=== PATIENT | female | born 1960 | race Caucasian/White ===

== ENCOUNTER 2018-09-26 08:32 | Emergency (ER) | payer OTHER ==
[~2018-09-26] VITALS: Ht 160 cm; Wt 90.0 kg
[2018-09-26 08:35] VITALS: Ht 160 cm; Wt 90.0 kg
--- NOTE | 2018-09-26 08:54 | ERD ---
ER Documentation Chief Complaint Chief Complaint hypertension and head "pressure" this morning HPI 58-year-old woman brought in by EMS from home for pressure-like chest discomfort, substernal, nonradiating occurring at rest this morning associated with elevated blood pressure and some anxiety as well. Patient states she had a similar episode of chest discomfort about 5 years ago but denies regular episodes of chest pain, denies heart problems, she has had no shortness of breath, no cough, no fevers or chills, no vomiting. Patient does admit to feeling anxious and has anxiety on a regular basis. ROS All systems reviewed and are negative except as per history of present illness. Medications Home Meds Reported Medications Alprazolam* (Xanax*) 0.5 Mg Tab, 0.5 MG PO BID PRN for ANXIETY, TAB 09/26/18 Sertraline Hcl* (Zoloft*) 50 Mg Tablet, 50 MG PO QAM, #30 TAB 09/26/18 Metoprolol Tartrate* (Lopressor*) 50 Mg Tab, 50 MG PO BID, #60 TAB 09/26/18 Allergies Allergies: Coded Allergies: No Known Allergy (Unverified , 09/26/18) PMhx/Soc Obesity, hypertension, anxiety FmHx Family History: No diabetes Physical Exam Vitals Vital Signs Date Temp Pulse Resp B/P (MAP) Pulse Ox O2 O2 Flow FiO2 Time Delivery Rate 09/26/18 97.8 68 18 132/75 95 08:35 (94) Physical Exam GENERAL: Well-developed, well-nourished, well-hydrated, anxious, looks nontoxic in appearance, afebrile HEENT: Moist mucous membranes, pink conjunctiva, no cervical spine tenderness or step-off deformities, no goiter, no jaundice or icterus, extraocular movements intact without pain. No submandibular induration, and no pharyngeal erythema NEURO: Alert and oriented 3, cranial nerves II through XII intact bilaterally, pupils equal round reactive to light, no focal deficits or facial asymmetry, sensation intact distally Strength 5/5 in upper and lower extremities bilaterally CARDIAC: Regular rate and rhythm, no murmurs rubs or gallops LUNGS: Clear bilaterally no wheezing crackles or stridor ABDOMEN: Soft nontender, no guarding, no rigidity, no rebound, no psoas sign no obturator sign. SKIN: Warm and dry to touch, no abrasions, contusions, or hematomas, no lacerations, no ecchymosis, no target lesions, and without ulcers EXTREMITIES: No clubbing cyanosis or edema, calves are bilaterally symmetrical, no Homans sign, no popliteal cord sign. Distal pulses equal and bilateral PSYCH: Anxious and tearful Result Diagram: 09/26/18 0721 09/26/18 0721 Results 24 hrs Laboratory Tests Test 09/26/18 07:21 09/26/18 10:22 White Blood Count 7.8 10^3/ul Red Blood Count 4.87 10^6/ul Hemoglobin 14.3 g/dl Hematocrit 44.5 % Mean Corpuscular Volume 91.4 fl Mean Corpuscular Hemoglobin 29.4 pg Mean Corpuscular Hemoglobin Concent 32.1 g/dl Red Cell Distribution Width 13.2 % Platelet Count 218 10^3/UL Mean Platelet Volume 10.5 fl Immature Granulocytes % 0.100 % Neutrophils % 33.1 % Lymphocytes % 53.7 % Monocytes % 8.0 % Eosinophils % 4.6 % Basophils % 0.5 % Nucleated Red Blood Cells % 0.0 /100WBC Immature Granulocytes # 0.010 10^3/ul Neutrophils # 2.6 10^3/ul Lymphocytes # 4.2 10^3/ul Monocytes # 0.6 10^3/ul Eosinophils # 0.4 10^3/ul Basophils # 0.0 10^3/ul Nucleated Red Blood Cells # 0.0 10^3/ul Sodium Level 143 mmol/L Potassium Level 3.7 mmol/L Chloride Level 101 mmol/L Carbon Dioxide Level 28 mmol/L Anion Gap 14 Blood Urea Nitrogen 11 mg/dl Creatinine 0.52 mg/dl Est Glomerular Filtrat Rate mL/min > 60 mL/min Glucose Level 145 mg/dl Calcium Level 9.6 mg/dl Total Bilirubin 0.4 mg/dl Direct Bilirubin 0.00 mg/dl Indirect Bilirubin 0.4 mg/dl Aspartate Amino Transf (AST/SGOT) 55 IU/L Alanine Aminotransferase (ALT/SGPT) 51 IU/L Alkaline Phosphatase 111 IU/L Troponin I < 0.012 ng/ml Total Protein 8.0 g/dl Albumin 4.3 g/dl Globulin 3.70 g/dl Albumin/Globulin Ratio 1.16 Lipase 50 U/L Urine Color YELLOW Urine Clarity SLIGHTLY CLOUDY Urine pH 6.0 Urine Specific Calder 1.003 Urine Ketones NEGATIVE mg/dL Urine Nitrite NEGATIVE mg/dL Urine Bilirubin NEGATIVE mg/dL Urine Urobilinogen NEGATIVE mg/dL Urine Leukocyte Esterase TRACE Joyce/ul Urine Microscopic RBC 2 /HPF Urine Microscopic WBC 9 /HPF Urine Squamous Epithelial Cells MODERATE /HPF Urine Bacteria FEW /HPF Urine Hemoglobin NEGATIVE mg/dL Urine Glucose NEGATIVE mg/dL Urine Total Protein NEGATIVE mg/dl Current Medications Medications Dose Sig/Sully Start Time Status Last (Trade) Ordered Route PRN Stop Time Admin Dose Reason Admin Sodium 500 ml @ Q1H STAT 09/26/18 DC 09/26/18 Chloride 500 mls/hr IV 09:03 09:33 09/26/18 10:02 Aspirin 324 mg ONCE ONCE 09/26/18 DC 09/26/18 (Aspirin) PO 09:30 09:34 09/26/18 09:31 Lorazepam 0.5 mg ONCE ONCE 09/26/18 DC (Ativan) PO 10:00 09/26/18 10:01 Procedures/MDM IV line was established patient was placed on desk monitor rhythm strip revealed a sinus rhythm at about 70 bpm with upright P and T waves. Patient was afebrile EKG performed, read by me revealed a normal sinus rhythm at 67 bpm, normal axis, narrow QRS complex, no concerning ST elevations or depressions noted I administered 500 cc normal saline IV and aspirin 324 mg p.o. for cardio protective measures. Chest X-ray 1V Interpreted by me: Soft Tissue: No acute abnormalities Bones: No acute abnormalities Mediastinum/Cardiac Silhouette/Lungs: No acute abnormalities Patient's hypertension improved en route CBC and electrolytes are normal, liver function tests were normal, troponin was negative, UA was equivocal although given her recent symptoms I did treat her with ceftriaxone 1 g IV here in the ED. Further antibiotic treatment if indicated deferred to admitting team. Given the patient's past medical history and risk factors she will be admitted to telemetry for chest pain management and possible cardiology consultation. Departure Diagnosis: Primary Impression: Hypertension Hypertension type: essential hypertension Qualified Codes: I10 - Essential (primary) hypertension Additional Impression: Chest pain Chest pain type: unspecified Qualified Codes: R07.9 - Chest pain, unspecified Condition: TARAN Iglesias MD Sep 26, 2018 08:54
[2018-09-26] MEDS ORDERED: METO-429 PO (09:02)
[2018-09-26] MEDS ORDERED: SOD CHLORIDE 0.9% 500 ML IV STA (09:03)
[2018-09-26] MEDS ORDERED: SERT50TA PO (09:04)
[2018-09-26] MEDS ORDERED: ALPR0.5T PO (09:04)
[2018-09-26] MEDS: ASPIRIN 81 MG TAB PO ONE ×2 (09:21→09:34)
[2018-09-26] MEDS ORDERED: LORAZEPAM 0.5 MG TAB PO ONE (10:00)
[2018-09-26] MEDS ORDERED: CEFTRIAXONE 1 GM/50 ML (PMX) 50 ML IVPB ONE (11:30)
[2018-09-26 12:00] VITALS: BP 119/64; PULSE 73; RESP 18
[2018-09-26] MEDS ORDERED: NICOTINE (21 MG/24 HR) PATCH TRANSDERM ONE (14:30)
--- NOTE | 2018-09-26 15:30 | DS ---
Date/Time of Note Date/Time of Note DATE: 09/26/18 TIME: 15:25 Discharge Summary Admission/Discharge Info Admit Date/Time 26 September 2018 Discharge Date/Time 26 September 2018 Discharge Diagnosis Noncardiac chest pain Patient Condition: Good Consults None Procedures None Hx of Present Illness Ms. Blood is an obese 58 yo woman with anxiety who presented to the ED with chest pain. Patient woke up this morning with "head pressure", followed soon by severe mid substernal chest pressure. She had her check her blood pressure using home cuff; wa 170/90s then 200s/100s. She took her morning metoprolol and Xanax. Called paramedics. On arrival, they measured a systolic blood pressure of 155. She was given aspirin 325 and sublingual nitro. The headache and chest pain resolved. She was brought to the [facility] ED. Of note, the patient had similar chest pain 5 years ago. She had a negative treadmill stress test by Dr. West. She last saw him about 3 years ago. In the meantime she reports adequate exercise tolerance, can walk up a flight of stairs without chest pain. In the ED vitals were unremarkable. BP 132/75, P 68, afebrile. EKG reviewed, nonischemic. Troponin negative. Labs unremarkable. CXR showed mild cardiomegaly. Of note, patient does smoke 1 ppd. I discussed risk factors for ACS for this patient and recommended it was very unlikely in her case; but she should at least remain for the second troponin. I also recommended she make an appointment with Dr. West. The patient initially was agreeable but later left the ED AMA. Hospital Course None Home Meds Reported Medications Alprazolam* (Xanax*) 0.5 Mg Tab, 0.5 MG PO BID PRN for ANXIETY, TAB 09/26/18 Sertraline Hcl* (Zoloft*) 50 Mg Tablet, 50 MG PO QAM, #30 TAB 09/26/18 Metoprolol Tartrate* (Lopressor*) 50 Mg Tab, 50 MG PO BID, #60 TAB 09/26/18 Primary Care Provider Care Physician No Primary Time spent on discharge: > 30 minutes Pending Labs Laboratory Tests Test 09/26/18 07:21 09/26/18 10:22 White Blood Count 7.8 10^3/ul (4.8-10.8) Red Blood Count 4.87 10^6/ul (4.20-5.40) Hemoglobin 14.3 g/dl (12.0-16.0) Hematocrit 44.5 % (37.0-47.0) Mean Corpuscular Volume 91.4 fl (82.0-101.0) Mean Corpuscular 29.4 pg (29.0-33.0) Hemoglobin Mean Corpuscular 32.1 g/dl (32.0-37.0) Hemoglobin Concent Red Cell Distribution 13.2 % (11.5-14.5) Width Platelet Count 218 10^3/UL (140-415) Mean Platelet Volume 10.5 fl (7.4-10.4) Immature Granulocytes % 0.100 % (0.001-0.429) Neutrophils % 33.1 % (39.0-77.0) Lymphocytes % 53.7 % (15.0-51.0) Monocytes % 8.0 % (0.0-11.0) Eosinophils % 4.6 % (0.0-7.0) Basophils % 0.5 % (0.0-2.0) Nucleated Red Blood Cells 0.0 /100WBC (0.0-0.0) % Immature Granulocytes # 0.010 10^3/ul (0.0-0.031) Neutrophils # 2.6 10^3/ul (1.6-7.5) Lymphocytes # 4.2 10^3/ul (0.8-2.9) Monocytes # 0.6 10^3/ul (0.3-0.9) Eosinophils # 0.4 10^3/ul (0.0-0.5) Basophils # 0.0 10^3/ul (0.0-0.1) Nucleated Red Blood Cells 0.0 10^3/ul (0.0-0.0) # Sodium Level 143 mmol/L (135-144) Potassium Level 3.7 mmol/L (3.5-5.1) Chloride Level 101 mmol/L (97-110) Carbon Dioxide Level 28 mmol/L (21-31) Anion Gap 14 (5-13) Blood Urea Nitrogen 11 mg/dl (7-20) Creatinine 0.52 mg/dl (0.44-1.00) Est Glomerular Filtrat > 60 mL/min (>60) Rate mL/min Glucose Level 145 mg/dl (70-220) Calcium Level 9.6 mg/dl (8.4-10.2) Total Bilirubin 0.4 mg/dl (0.2-1.3) Direct Bilirubin 0.00 mg/dl (0.00-0.20) Indirect Bilirubin 0.4 mg/dl (0-1.1) Aspartate Amino 55 IU/L (15-46) Transf (AST/SGOT) Alanine 51 IU/L (13-69) Aminotransferase (ALT/SGPT ) Alkaline Phosphatase 111 IU/L (42-121) Troponin I < 0.012 ng/ml (0.000-0.120) Total Protein 8.0 g/dl (6.1-8.1) Albumin 4.3 g/dl (3.3-4.9) Globulin 3.70 g/dl (1.3-3.2) Albumin/Globulin Ratio 1.16 Lipase 50 U/L (23-300) Urine Color YELLOW (YELLOW) Urine Clarity SLIGHTLY CLOUDY (CLEAR) Urine pH 6.0 (5.0-9.0) Urine Specific Waldron 1.003 (1.003-1.030) Urine Ketones NEGATIVE mg/dL (NEGATIVE) Urine Nitrite NEGATIVE mg/dL (NEGATIVE) Urine Bilirubin NEGATIVE mg/dL (NEGATIVE) Urine Urobilinogen NEGATIVE mg/dL (NEGATIVE) Urine Leukocyte Esterase TRACE Joyce/ul (NEGATIVE) Urine Microscopic RBC 2 /HPF (0-5) Urine Microscopic WBC 9 /HPF (0-5) Urine Squamous MODERATE /HPF (FEW) Epithelial Cells Urine Bacteria FEW /HPF (NONE SEEN) Urine Hemoglobin NEGATIVE mg/dL (NEGATIVE) Urine Glucose NEGATIVE mg/dL (NEGATIVE) Urine Total Protein NEGATIVE mg/dl (NEGATIVE) KRISTY LAWRENCE MD Sep 26, 2018 15:30
== END 2018-09-26 14:10 | disposition left against medical advice (07) ==
LOC: E/R 08:32 → CANBEDREQ 09-27 19:33
DX: I10 Essential (primary) hypertension (principal); R07.9 Chest pain, unspecified
CPT/HCPCS: 36415; 71045; 80053; 81001; 83690; 84484; 85025; 96374; J0696; J7040; Z7502; Z7610

== ENCOUNTER 2018-11-08 04:05 | Observation (INO) | payer OTHER ==
[~2018-11-08] VITALS: Ht 170.2 cm; Wt 120.7 kg
[~2018-11-08 04:05] MED LIST: ALPR0.5T PO; METO-429 PO; SERT50TA PO
[2018-11-08] MEDS ORDERED: NITROGLYCERIN 2% 1 GM OINT PKT TD STA (04:36)
[2018-11-08] MEDS ORDERED: ASPIRIN 325 MG TAB PO STA (04:36)
--- NOTE | 2018-11-08 05:05 | ERD ---
ER Documentation Chief Complaint Chief Complaint CP; HTN HPI 58-year-old female history of obesity, hypertension, smoking who presents the emergency room with chest pain. The patient has had several weeks of chest pain usually in the early hours of the morning. She was seen at [facility] several days ago and told to be admitted at [facility] but she left AGAINST MEDICAL ADVICE. The patient describes persistent chest pain and pressure that is substernal, nonradiating, nonpleuritic. Blood pressure has been elevated at home in the 190 range. No mid back pain numbness or tingling. Pain is approximately 3-10 currently. ROS All systems reviewed and are negative except as per history of present illness. Medications Home Meds Reported Medications Alprazolam* (Xanax*) 0.5 Mg Tab, 0.5 MG PO BID PRN for ANXIETY, TAB 09/26/18 Sertraline Hcl* (Zoloft*) 50 Mg Tablet, 50 MG PO QAM, #30 TAB 09/26/18 Metoprolol Tartrate* (Lopressor*) 50 Mg Tab, 50 MG PO BID, #60 TAB 09/26/18 Allergies Allergies: Coded Allergies: No Known Allergy (Unverified , 09/26/18) PMhx/Soc History of Surgery: No Anesthesia Reaction: No Hx Neurological Disorder: No Hx Respiratory Disorders: No Hx Cardiac Disorders: Yes (htn) Hx Psychiatric Problems: No Hx Miscellaneous Medical Probl: Yes (anxiety) Hx Alcohol Use: No Hx Substance Use: No Hx Tobacco Use: Yes Smoking Status: Current every day smoker FmHx Family History: No diabetes Physical Exam Vitals Vital Signs Date Temp Pulse Resp B/P (MAP) Pulse Ox O2 O2 Flow FiO2 Time Delivery Rate 11/08/18 77 14 150/92 96 Room Air 05:58 (111) 11/08/18 98.6 70 18 172/80 97 04:14 (110) Physical Exam General: Well developed, well nourished, no acute distress Head: Normocephalic, atraumatic. Eyes: Pupils equally reactive, EOM intact ENT: Moist mucous membranes Neck: Supple, no lymphadenopathy Respiratory: Lungs clear bilaterally, no distress Cardiovascular: RRR, no murmurs, rubs, or gallops Abdominal: Soft, non-tender, non-distended, no peritoneal signs : Deferred MSK: No edema, no unilateral swelling, 5/5 strength Neurologic: Alert and oriented, moving all extremities, normal speech, no focal weakness, no cerebellar signs Skin: No rash Psych: Normal mood Result Diagram: 11/08/1844611/08/18446 Results 24 hrs Laboratory Tests Test 11/08/18 04:47 White Blood Count 8.6 10^3/ul Red Blood Count 4.97 10^6/ul Hemoglobin 14.7 g/dl Hematocrit 44.7 % Mean Corpuscular Volume 89.9 fl Mean Corpuscular Hemoglobin 29.6 pg Mean Corpuscular Hemoglobin Concent 32.9 g/dl Red Cell Distribution Width 13.3 % Platelet Count 220 10^3/UL Mean Platelet Volume 10.4 fl Immature Granulocytes % 0.200 % Neutrophils % 40.1 % Lymphocytes % 48.0 % Monocytes % 7.5 % Eosinophils % 3.3 % Basophils % 0.9 % Nucleated Red Blood Cells % 0.0 /100WBC Immature Granulocytes # 0.020 10^3/ul Neutrophils # 3.4 10^3/ul Lymphocytes # 4.1 10^3/ul Monocytes # 0.6 10^3/ul Eosinophils # 0.3 10^3/ul Basophils # 0.1 10^3/ul Nucleated Red Blood Cells # 0.0 10^3/ul Sodium Level 141 mmol/L Potassium Level 3.7 mmol/L Chloride Level 105 mmol/L Carbon Dioxide Level 27 mmol/L Anion Gap 9 Blood Urea Nitrogen 12 mg/dl Creatinine 0.57 mg/dl Est Glomerular Filtrat Rate mL/min > 60 mL/min Glucose Level 108 mg/dl Calcium Level 9.9 mg/dl Troponin I < 0.012 ng/ml Current Medications Medications Dose Sig/Sully Start Time Status Last (Trade) Ordered Route PRN Stop Time Admin Dose Reason Admin Aspirin 325 mg ONCE STAT 11/08/18 DC 11/08/18 (Aspirin) PO 04:36 11/08/18 04:51 04:38 1 inch ONCE STAT 11/08/18 DC 11/08/18 Nitroglycerin TD 04:36 11/08/18 04:51 04:38 (Nitroglyceri n 2% Oint) Procedures/MDM EKG, MONITORS, & DIAGNOSTIC IMAGING: EKG: I reviewed and interpreted a 12-lead EKG. Rhythm: Normal sinus rhythm ST Changes: No contiguous ST segment elevations T waves: No contiguous T wave inversions Impression: No evidence of acute cardiac ischemia Repeat EKG: EKG: I reviewed and interpreted a 12-lead EKG. Rhythm: Normal sinus rhythm ST Changes: No contiguous ST segment elevations T waves: No contiguous T wave inversions Impression: No evidence of acute cardiac ischemia Chest x-ray: I reviewed and interpreted a 1 view of the chest Mediastinum: No enlargement Cardiac silhouette: No cardiomegaly Airspace: Clear lung barrett bilaterally without evidence of pneumothorax Bones: No evidence of fracture PROCEDURES: None LAB INTERPRETATION: * neg trop MEDICAL DECISION MAKING: The patient's history, physical exam and clinical presentation is concerning for possible cardiogenic etiology and acute coronary syndrome. Based on the patient's clinical exam and history and risk factors, I have a much lower clinical concern for pulmonary embolism, acute aortic dissection, pneumothorax, pneumonia, cardiac tamponade HEART Score: 4 MACE Rate: 16.6% Shared Decision Making: We had a conversation regarding risk stratification, MACE rate, and the risks, benefits, alternatives of disposition planning options. Disposition planning: Telemetry admission ER COURSE: * Blood pressure improved without significant intervention. Aspirin nitroglycerin provided. Chest pain improving. CONSULTATION: None DISPOSITION PLAN: Telemetry admission for management of chest pain to rule out acute coronary syndrome, serial enzymes, risk stratification and consideration of provocative testing CONSULTATION: Accepting care team and consultations: I discussed the current laboratory data, diagnostic imaging and emergency care provided. Admitting team: Dr. Garcia Admitting team indication: Insurance directed Departure Diagnosis: Primary Impression: Chest pain Chest pain type: unspecified Qualified Codes: R07.9 - Chest pain, unspecified Additional Impression: Hypertensive urgency Condition: Stable SU GARCÍA MD November 08, 2018 05:05
[2018-11-08] MEDS ORDERED: ACETAMINOPHEN 325 MG TAB PO PRN ×2 (06:00→06:30)
[2018-11-08] MEDS ORDERED: ONDANSETRON 4 MG INJ IV PRN ×2 (06:00→06:30)
[2018-11-08] MEDS ORDERED: NACL 0.9% 3 ML SYG IV SCH (06:30)
[2018-11-08] MEDS ORDERED: DOCUSATE SODIUM 100 MG CAP PO PRN (06:30)
[2018-11-08] MEDS ORDERED: NITROGLYCERIN (SL) 0.4 MG TAB SL PRN (06:30)
[2018-11-08] MEDS ORDERED: BISACODYL (EC) 5 MG TAB PO PRN (06:30)
[2018-11-08] MEDS ORDERED: morphine 2 MG INJ IV PRN (06:30)
--- NOTE | 2018-11-08 08:00 | HP ---
Date/Time of Note Date/Time of Note DATE: 11/08/18 TIME: 07:58 Assessment/Plan VTE Prophylaxis SCD applied (from Nsg): Yes Pharmacological prophylaxis: NA/contraindicated Pharm contraindication: low risk/ambulating Lines/Catheters IV Catheter Type (from Nrsg): Saline Lock Assessment/Plan Hospital Course This is a 58-year-old female being admitted to the telemetry floor for observation for: #1 chest pain: Rule out ACS versus musculoskeletal/anxiety. patient does apparently have uncontrolled blood pressures however unsure whether this is due to underlying anxiety. palpable tenderness to palpation across her chest wall. She does report systolic blood pressures in the 190s at home. She is currently only on metoprolol. I will start patient on Norvasc 2.5 mg p.o. daily at the current time. She does have a nitro patch on as well which I will discontinue to but her get an ideal patient's blood pressures. And put PRN nitroglycerin sublingual. Will trend cardiac enzymes x3, the first that was negative. We will check an echocardiogram. #2 uncontrolled hypertension: Anxiety may also be contributing to this as well. Nonetheless given the high blood pressures will continue patient's beta-kwesi, will initiate Norvasc. Will DC the nitro patch at the current time. PRN nitro sublingual as needed. Monitor blood pressures #3 anxiety: Continue sertraline, will consult psych for further guidance #4 insomnia: Possibly secondary to underlying anxiety/stress. And then will con sult psych. #5 obesity: We will check hemoglobin A1c, lipid panel, TSH #6 DVT and GI prophylaxis: SCDs, no GI prophylaxis indicated Further treatment strategy will be implemented as per the clinical course. Result Diagram: 11/08/18 0447 11/08/18 0447 Results 24hrs Laboratory Tests Test 11/08/18 04:47 White Blood Count 8.6 Red Blood Count 4.97 Hemoglobin 14.7 Hematocrit 44.7 Mean Corpuscular Volume 89.9 Mean Corpuscular Hemoglobin 29.6 Mean Corpuscular Hemoglobin Concent 32.9 Red Cell Distribution Width 13.3 Platelet Count 220 Mean Platelet Volume 10.4 Immature Granulocytes % 0.200 Neutrophils % 40.1 Lymphocytes % 48.0 Monocytes % 7.5 Eosinophils % 3.3 Basophils % 0.9 Nucleated Red Blood Cells % 0.0 Immature Granulocytes # 0.020 Neutrophils # 3.4 Lymphocytes # 4.1 H Monocytes # 0.6 Eosinophils # 0.3 Basophils # 0.1 Nucleated Red Blood Cells # 0.0 Sodium Level 141 Potassium Level 3.7 Chloride Level 105 Carbon Dioxide Level 27 Anion Gap 9 Blood Urea Nitrogen 12 Creatinine 0.57 Est Glomerular Filtrat Rate mL/min > 60 Glucose Level 108 Hemoglobin A1c 5.9 Calcium Level 9.9 Magnesium Level 1.9 Troponin I < 0.012 Triglycerides Level 181 H Cholesterol Level 248 H LDL Cholesterol, Calculated 176 HDL Cholesterol 36 L Cholesterol/HDL Ratio 6.8 Thyroid Stimulating Hormone (TSH) Pending HPI/ROS Admit Date/Time Admit Date/Time Hx of Present Illness cc: Chest pain: 58-year-old female history of obesity, hypertension, smoking who presents the emergency room with chest pain. The patient has had several weeks of chest pain usually in the early hours of the morning. She was seen at [facility] several days ago and told to be admitted at [facility] but she left AGAINST MEDICAL ADVICE. The patient describes persistent chest pain and pressure that is substernal, nonradiating, nonpleuritic. Blood pressure has been elevated at home in the 190 range. No mid back pain numbness or tingling. Pain is approximately 3-10 currently. Patient also reports that she has been dealing with a lot of stress lately secondary to finances. She has also not been sleeping properly. She reports that her blood pressures go into the low 190s mainly at night when she is using her iPad. Allergies: NKDA Medications: See IVON DENT Const: As per HPI Eyes : No pain discharge or redness or change in visual acuity ENT: No pain, sore throat, congestion, congestion, dysphagia or discharge Respiratory: No shortness of breath, cough, sputum, wheezing, or pleuritic pain Cardiovascular: As per HPI GI : no change in appetite, abdominal pain, nausea, vomiting, diarrhea, constipation, or change in the color his stool Genitourinary: No dysuria, hematuria, flank pain , discharge or CVA tenderness Musculoskeletal: No joint pain, back pain, neck pain, restricted range of motion in neck or joints Skin: No rash, bruising or hives Neuro: No headache, dizziness, syncope, seizure, focal weakness Endocrine: No polyuria, polydipsia, temperature intolerance Psych: No hallucination, depression, anxiety or suicidal ideation PMH/Family/Social Past Medical History Hypertension, anxiety Medications Current Medications Ondansetron HCl (Zofran Inj) 4 mg ER BRIDGE PRN IV NAUSEA/VOMITING; Start 11/08/18 at 06:00; Stop 11/09/18 at 05:59 Acetaminophen (Tylenol Tab) 650 mg ER BRIDGE PRN PO .MILD PAIN 1-3 OR TEMP; Start 11/08/18 at 06:00; Stop 11/09/18 at 05:59 Alprazolam (Xanax) 0.5 mg BID PRN PO ANXIETY; Start 11/08/18 at 06:30 Metoprolol Tartrate (Lopressor) 50 mg BID PO ; Start 11/08/18 at 09:00 Sertraline HCl (Zoloft) 50 mg QAM PO ; Start 11/08/18 at 09:00 IV Flush (NS 3 ml) 3 ml PER PROTOCOL IV ; Start 11/08/18 at 06:30 Ondansetron HCl (Zofran Inj) 4 mg Q6H PRN IV NAUSEA/VOMITING; Start 11/08/18 at 06:30 Nitroglycerin (Nitroglycerin (Sl Tab) 0.4 Mg) 1 tab Q5M PRN SL .CHEST PAIN; Start 11/08/18 at 06:30 Acetaminophen (Tylenol Tab) 650 mg Q6H PRN PO .PAIN 1-3 OR TEMP; Start 11/08/18 at 06:30 Morphine Sulfate (morphine) 2 mg Q4H PRN IV .PAIN 7-10; Start 11/08/18 at 06:30 Docusate Sodium (Colace) 100 mg Q12H PRN PO .CONSTIPATION; Start 11/08/18 at 06:30 Bisacodyl (Dulcolax) 5 mg DAILY PRN PO .CONSTIPATION; Start 11/08/18 at 06:30 Coded Allergies: No Known Allergy (Unverified , 11/08/18) Past Surgical History x2 Social History Alcohol Use: none Smoking Status: Current every day smoker Drug Use: none Exam/Review of Systems Vital Signs Vitals Vital Signs Date Temp Pulse Resp B/P (MAP) Pulse Ox O2 O2 Flow FiO2 Time Delivery Rate 11/08/18 62 16 129/68 96 Room Air 06:27 (88) 11/08/18 98.6 04:14 Exam Exam General: Currently lying in bed, patient does appear tired, exhausted HEENT: Atraumatic, normocephalic. The pupils are equal, round and reactive. Extraocular motor are intact Neck: Supple with full range of motion. No rigidity or meningismus Chest: Tenderness to palpation across anterior chest wall and the sternal wall Lungs: Clear to auscultation bilaterally no crackles rales or wheezing Heart: Normal S1-S2, Regular rhythm and rate. No murmur, S3, or S4 Abdomen: Obese, soft , nontender, nondistended , bowel sounds are present. No guarding no rebound tenderness , No masses or organomegaly. No costovertebral temporal angle mass Extremities: Normal to inspection, no edema no cyanosis Neurologic: Normal mental status, speech normal, cranial nerves II through XII a re intact, motor and sensory are intact, Additional Comments PROCEDURE: XR Chest. CLINICAL INDICATION: Chest pain TECHNIQUE: AP chest was obtained. COMPARISON: None. FINDINGS: Heart normal limits in size. No evidence of pulmonary vascular congestion acute lung consolidation pleural effusions and pneumothorax. IMPRESSION: No evidence of acute cardiopulmonary disease. RPTAT:AAJJ Physician Mony Date Time Electronically viewed and signed by Physician Mony on 11/08/2018 05:05 BM/ CC: SU GARCÍA MD [id number] EKG: Rhythm: Normal sinus rhythm ST Changes: No contiguous ST segment elevations T waves: No contiguous T wave inversions Impression: No evidence of acute cardiac ischemia ANEL SIERRA November 08, 2018 08:00
[2018-11-08] MEDS: METOPROLOL 50 MG TAB PO SCH ×2 (08:18→20:12)
[2018-11-08] MEDS: SERTRALINE 50 MG TAB PO SCH (08:18)
[2018-11-08] MEDS: AMLODIPINE 2.5 MG TAB PO SCH (08:24)
[2018-11-08] MEDS: ALPRAZOLAM 0.5 MG TAB PO PRN ×2 (12:03→21:20)
--- NOTE | 2018-11-08 13:59 | QN ---
Documentation Comment 58-year-old obese female with a history of hypertension, anxiety disorders, tobacco abuse, admitted with substernal chest pain... Found to have poorly controlled blood pressure. Serial cardiac biomarkers have been negative. Pending echocardiogram. Patient continued to report chest pain, unrelated to activity, rest. Aspirin or nitro does not help with pain either. She endorsed to a negative stress test 1-1/2 years ago. Blood pressure has been stabilized with addition of antihypertensives. At this time, as patient with multiple ER visits for chest pain, I will request cardiology consultation. Continue home medications. Counseled on smoking cessation. Patient refused nicotine patch. Case discussed with Dr. Salinas. SHAGGY CARVER NP November 08, 2018 13:59
--- NOTE | 2018-11-08 17:36 | PSY ---
Date/Time of Note Date/Time of Note DATE: 11/08/18 TIME: 16:50 Psychiatric Subjective Eval Consent Pt consented to telemedicine: No Subjective Evaluation Patient location: inpatient Chief Complaint: CP; HTN History of present illness Patient is a 58-year-old female with underlying medical history of obesity, hypertension, smoking who presents the emergency room with chest pain. [id number] evaluation, patient states she has chronic anxiety, and she has been on Zoloft and alprazolam for 16 years. Patient states she is worried about her increased blood pressure because nothing seems to be bordering her, that may have contributed to the high blood pressure. She states she has chronic anxiety, which has been controlled with the Zoloft and alprazolam. She denies feeling of hopelessness denies suicidal ideation denies irritability contracted for safety. Patient expressed that she has not been able to get a psychiatrist on an outpatient basis, and requested for referral. Will enter an order for social media senior associate to assist patient with outpatient psychiatric appointment with [facility] Hospitalization: other Medical history Problems Medical Problems: (1) Chest pain Status: Acute (2) Chest pain Status: Acute (3) Hypertension Status: Acute (4) Hypertensive urgency Status: Acute Allergies: Coded Allergies: No Known Allergy (Unverified , 11/08/18) Substance Abuse Substance abuse history: No Prior substance abuse treatmen: No Social History Marital status: other DPA/Conservatorship: No Psychiatric Objective Eval Review of Systems: Review of Systems: Not Applicable Physical Examination: Sleep: Adequate Appetite: Adequate Energy: Adequate Interest: Adequate Mental Status Examination: Appearance: Groomed Eye Contact: Good Psychomotor Activity: Normal Behavior: Cooperative Speech: Clear AFFECT: Appropriate Mood: Anxious Though Process: Linear Thought Content: Normal Orientation: x4 Cognition: Alert Insight: Intact Judgement: Intact Attention Span: Intact Laboratory Results Laboratory Tests Test 11/08/18 04:47 11/08/18 10:46 White Blood Count 8.6 10^3/ul Red Blood Count 4.97 10^6/ul Hemoglobin 14.7 g/dl Hematocrit 44.7 % Mean Corpuscular Volume 89.9 fl Mean Corpuscular Hemoglobin 29.6 pg Mean Corpuscular Hemoglobin Concent 32.9 g/dl Red Cell Distribution Width 13.3 % Platelet Count 220 10^3/UL Mean Platelet Volume 10.4 fl Immature Granulocytes % 0.200 % Neutrophils % 40.1 % Lymphocytes % 48.0 % Monocytes % 7.5 % Eosinophils % 3.3 % Basophils % 0.9 % Nucleated Red Blood Cells % 0.0 /100WBC Immature Granulocytes # 0.020 10^3/ul Neutrophils # 3.4 10^3/ul Lymphocytes # 4.1 10^3/ul Monocytes # 0.6 10^3/ul Eosinophils # 0.3 10^3/ul Basophils # 0.1 10^3/ul Nucleated Red Blood Cells # 0.0 10^3/ul Sodium Level 141 mmol/L Potassium Level 3.7 mmol/L Chloride Level 105 mmol/L Carbon Dioxide Level 27 mmol/L Anion Gap 9 Blood Urea Nitrogen 12 mg/dl Creatinine 0.57 mg/dl Est Glomerular Filtrat Rate mL/min > 60 mL/min Glucose Level 108 mg/dl Hemoglobin A1c 5.9 % Calcium Level 9.9 mg/dl Magnesium Level 1.9 mg/dl Troponin I < 0.012 ng/ml < 0.012 ng/ml Triglycerides Level 181 mg/dl Cholesterol Level 248 mg/dl LDL Cholesterol, Calculated 176 mg/dl HDL Cholesterol 36 mg/dl Cholesterol/HDL Ratio 6.8 RATIO Thyroid Stimulating Hormone (TSH) 4.620 MIU/L Creatine Kinase 42 IU/L Creatine Kinase Index 0.6 Creatinine Kinase MB (Mass) 0.24 ng/ml Assessment and Plan Assessment/Diagnosis Diagnosis Anxiety disorder Recommendation/Plan Medication Management Continue current medication Zoloft and Xanax. clerical and administrative workers to make an appointment for patient to see an outpatient psychiatrist with [facility] Multiple antipsychotics: No Psychotherapy By supportive therapy Discharge Disposition: Other Legal Status: Voluntary (Patient does not meet criteria for 5150 hold) JENELLE VILLATORO NP November 08, 2018 17:00
[2018-11-08 17:53] VITALS: Ht 170.2 cm; Wt 120.7 kg
[2018-11-08 17:58] VITALS: PULSE 65
[2018-11-08 18:22] VITALS: BP 146/68; PULSE 62; RESP 18
[2018-11-08 20:00] VITALS: PULSE 63
[2018-11-08 20:04] VITALS: BP 130/66; PULSE 62; RESP 20
[2018-11-08 20:11] VITALS: BP 145/68; PULSE 64
--- NOTE | 2018-11-08 22:42 | RADRPT ---
Echocardiogram Report Patient Name: PEPE DUNHAMPatient ID: [id number] : 1960 (58y 5m)Study Date: 11/08/2018 9:05:51 AM Gender: FAccession #: [id number] Tech: Maria T Destini Callahan [facility] Location: 51 Ref.Physician: ANEL SIERRA Height(Cm): BSA: Weight(Kg): Quality: AdequateAccount #: Procedures: Echocardiographic Report: Transthoracic echocardiogram with complete 2D, M-Mode, and doppler examination. Indications: Chest Pain. Measurements: 2D/M Mode Doppler Measurement Value Normal Range Measurement Value Normal Range LVIDd 2D 3.9 [ 3.8 - 5.2 ] cm AV Peak Guille 1.6 [ 100.0 - 170.0 ] cm/sec LVIDs 2D 2.0 [ 2.2 - 3.5 ] cm AV Peak PG 10.0 [ 2.0 - 9.0 ] mmHg LVPWd 2D 1.1 [ 0.6 - 0.9 ] cm LVOT Peak Guille 1.1 [ 70.0 - 110.0 ] cm/sec IVSd 2D 1.3 [ 0.6 - 0.9 ] cm LVOT Peak PG 5.0 [ 2.0 - 6.0 ] mmHg AoR Diam 2D 2.2 [ 2.3 - 3.1 ] cm MV E Peak Guille 0.7 [ 60.0 - 130.0 ] cm/sec EDV 2D 67.1 [ 46.0 - 106.0 ] ml MV A Peak Guille 1.0 [ 100.0 - 120.0 ] cm/sec ESV 2D 13.6 [ 14.0 - 42.0 ] ml MV E/A 0.7 [ 0.8 - 1.5 ] ratio EF 2D 79.7 [ 54.0 - 74.0 ] percent MV Decel Time 215 [ 104 - 258 ] msec LA Dimen 2D 3.4 [ 2.7 - 3.8 ] cm Lat E` Guille 0.1 [ 10.0 - 15.0 ] cm/sec Lateral E/E` 8.1 [ 1.0 - 2.0 ] ratio MV E/A 0.7 [ 0.8 - 1.5 ] ratio TR Peak Guille 2.6 [ 100.0 - 280.0 ] cm/sec TR Peak PG 27.0 mmHg RVSP 30.0 [ 10.0 - 36.0 ] mmHg RA Pressure 3.0 mmHg Findings: Left Ventricle: Overall, normal left ventricular systolic function. Not all segments visualized. Normal left ventricular cavity size. Mild concentric left ventricular hypertrophy. Ejection fraction is visually estimated at 60 %. Tissue Doppler/Mitral Doppler indices are consistent with impaired relaxation (Stage I diastolic dysfunction). Right Ventricle: Normal right ventricular size. Normal right ventricular systolic function. Left Atrium: The left atrium is normal in size. Right Atrium: The right atrium is normal in size. Mitral Valve: Normal appearance and function of the mitral valve with trace physiologic regurgitation. Aortic Valve: Normal appearance of the aortic valve. No significant aortic stenosis or insufficiency. Tricuspid Valve: Normal appearance of the tricuspid valve. Estimated peak PA systolic pressure 30 mmHg. There is trace tricuspid regurgitation. Pulmonic Valve: Pulmonic valve not well visualized. Pericardium: Normal pericardium with no significant pericardial effusion. Aorta: Normal aortic root. IVC: Normal size and normal respiratory collapse consistent with normal right atrial pressure. Conclusions: Overall, normal left ventricular systolic function. Not all segments visualized. Normal left ventricular cavity size. Mild concentric left ventricular hypertrophy. Ejection fraction is visually estimated at 60 %. Tissue Doppler/Mitral Doppler indices are consistent with impaired relaxation (Stage I diastolic dysfunction). Normal right ventricular size. Normal right ventricular systolic function. The left atrium is normal in size. The right atrium is normal in size. No significant valvular stenosis or regurgitation seen. Normal pericardium with no significant pericardial effusion. Electronically Signed By: López Llanos 2018-11-08 22:41:26 PDT
[2018-11-08 23:06] VITALS: PULSE 36
[2018-11-09] VITALS (8 sets, daily range): BP systolic 128–144; BP diastolic 60–66; PULSE 52–70; RESP 18–20
[2018-11-09] MEDS ORDERED: traZODone 50 MG TAB PO ONE (01:30)
[2018-11-09] MEDS: SERTRALINE 50 MG TAB PO SCH (08:07)
[2018-11-09] MEDS: AMLODIPINE 2.5 MG TAB PO SCH (08:08)
[2018-11-09] MEDS: METOPROLOL 50 MG TAB PO SCH (08:11)
--- NOTE | 2018-11-09 11:48 | CONS ---
Assessment/Plan Assessment/Plan Hospital Course (Demo Recall) Uncontrolled hypertension, improved Chest pain, resolved Preserved ejection fraction Anxiety Obesity Tobacco use -Patient with symptoms of chest discomfort, increased anxiety and uncontrolled b lood pressure. Once patient treated with medications as well as admitting that her anxiety level has decreased, she is feeling much better with no further chest pain. She otherwise denies exertional chest discomfort at home. -Serial cardiac enzymes are negative, ECG with no significant ischemic no rmalities, echocardiogram with preserved ejection fraction -Symptoms appear atypical for cardiac ischemia -Patient has been bradycardic on her current dose of metoprolol, I recommended decreasing the dose to 25 mg p.o. twice daily since she does tell me it helps her with her palpitations. She is also on amlodipine 2.5 mg p.o. daily. -I did recommend smoking cessation, weight loss, nutrition evaluation -DC planning Consultation Date/Type/Reason Admit Date/Time Type of Consult Cardiology Reason for Consultation Elevated blood pressure and chest pain Date/Time of Note DATE: 11/09/18 TIME: 11:43 Hx of Present Illness This is a 55 female with past medical history of hypertension, anxiety, obesity who presents with uncontrolled blood pressure, increased anxiety and chest pain. She is unclear which came first. She has been more anxious secondary to financial worries. She is been taking metoprolol 50 mg p.o. twice daily for approximately 6 years. After treatment of her blood pressure in the hospital, her chest discomfort has resolved. Anxiety level is also improved. Denies any current shortness of breath. He does admit to intermittent shortness of breath with exertion no chest discomfort. This has been going on for a number of years. This has worsened with her increased smoking. She denies any fevers or chills, nausea or palpitations currently. She does get intermittent palpitations during her anxiety exacerbations. 12 point review of systems was performed with all pertinent positives and negatives mentioned above and all else is negative Past Medical History Anxiety Medical History: hypertension Home Meds Reported Medications Alprazolam* (Xanax*) 0.5 Mg Tab, 0.5 MG PO BID PRN for ANXIETY, TAB 09/26/18 Sertraline Hcl* (Zoloft*) 50 Mg Tablet, 50 MG PO QAM, #30 TAB 09/26/18 Metoprolol Tartrate* (Lopressor*) 50 Mg Tab, 50 MG PO BID, #60 TAB 09/26/18 Medications Current Medications Alprazolam (Xanax) 0.5 mg BID PRN PO ANXIETY Last administered on 11/08/18at 21:20; Admin Dose 0.5 MG; Start 11/08/18 at 06:30 Sertraline HCl (Zoloft) 50 mg QAM PO Last administered on 11/09/18at 08:07; Admin Dose 50 MG; Start 11/08/18 at 09:00 IV Flush (NS 3 ml) 3 ml PER PROTOCOL IV ; Start 11/08/18 at 06:30 Ondansetron HCl (Zofran Inj) 4 mg Q6H PRN IV NAUSEA/VOMITING; Start 11/08/18 at 06:30 Nitroglycerin (Nitroglycerin (Sl Tab) 0.4 Mg) 1 tab Q5M PRN SL .CHEST PAIN; Start 11/08/18 at 06:30 Acetaminophen (Tylenol Tab) 650 mg Q6H PRN PO .PAIN 1-3 OR TEMP; Start 11/08/18 at 06:30 Morphine Sulfate (morphine) 2 mg Q4H PRN IV .PAIN 7-10; Start 11/08/18 at 06:30 Docusate Sodium (Colace) 100 mg Q12H PRN PO .CONSTIPATION; Start 11/08/18 at 06:30 Bisacodyl (Dulcolax) 5 mg DAILY PRN PO .CONSTIPATION; Start 11/08/18 at 06:30 Amlodipine Besylate (Norvasc) 2.5 mg DAILY PO Last administered on 11/09/18at 08:08; Admin Dose 2.5 MG; Start 11/08/18 at 09:00 Atorvastatin Calcium (Lipitor) 10 mg HS PO ; Start 11/09/18 at 21:00 Allergies: Coded Allergies: No Known Allergy (Unverified , 11/08/18) Past Surgical History Past Surgical Hx: other () Family History Significant Family History: no pertinent family hx Social History Alcohol Use: none Smoking Status: Current every day smoker Drug Use: none Exam/Review of Systems Vital Signs Vitals Vital Signs Date Temp Pulse Resp B/P (MAP) Pulse Ox O2 O2 Flow FiO2 Time Delivery Rate 11/09/18 98.6 54 18 144/66 92 11:28 (92) 11/08/18 Room Air 18:22 Exam Constitutional: alert, oriented (Obesity, no apparent distress) Head: normocephalic Respiratory: clear to auscultation, normal air movement Cardiovascular: regular rate and rhythm (S1-S2 heard) Gastrointestinal: soft, non-tender, bowel sounds Extremities: other (No significant edema) Labs Result Diagram: 11/09/18 0625 11/09/18 0625 Results 24hrs Laboratory Tests Test 11/08/18 18:03 11/09/18 06:25 Creatine Kinase 49 Creatine Kinase Index 0.6 Creatinine Kinase MB (Mass) 0.27 Troponin I < 0.012 White Blood Count 8.0 Red Blood Count 4.90 Hemoglobin 14.5 Hematocrit 44.3 Mean Corpuscular Volume 90.4 Mean Corpuscular Hemoglobin 29.6 Mean Corpuscular Hemoglobin Concent 32.7 Red Cell Distribution Width 13.2 Platelet Count 188 Mean Platelet Volume 10.6 H Immature Granulocytes % 0.300 Neutrophils % 39.8 Lymphocytes % 47.4 Monocytes % 8.7 Eosinophils % 3.0 Basophils % 0.8 Nucleated Red Blood Cells % 0.0 Immature Granulocytes # 0.020 Neutrophils # 3.2 Lymphocytes # 3.8 H Monocytes # 0.7 Eosinophils # 0.2 Basophils # 0.1 Nucleated Red Blood Cells # 0.0 Sodium Level 145 H Potassium Level 4.2 Chloride Level 106 Carbon Dioxide Level 31 Anion Gap 8 Blood Urea Nitrogen 11 Creatinine 0.59 Est Glomerular Filtrat Rate mL/min > 60 Glucose Level 105 Calcium Level 10.1 Total Bilirubin 0.6 Direct Bilirubin 0.00 Indirect Bilirubin 0.6 Aspartate Amino Transf (AST/SGOT) 49 H Alanine Aminotransferase (ALT/SGPT) 70 H Alkaline Phosphatase 96 Total Protein 8.0 Albumin 4.2 Globulin 3.80 H Albumin/Globulin Ratio 1.10 Imaging Imaging ECG demonstrates sinus rhythm, normal QRS duration, no significant ischemic ST abnormalities Medications Medications Current Medications Alprazolam (Xanax) 0.5 mg BID PRN PO ANXIETY Last administered on 11/08/18at 21:20; Admin Dose 0.5 MG; Start 11/08/18 at 06:30 Sertraline HCl (Zoloft) 50 mg QAM PO Last administered on 11/09/18at 08:07; Admin Dose 50 MG; Start 11/08/18 at 09:00 IV Flush (NS 3 ml) 3 ml PER PROTOCOL IV ; Start 11/08/18 at 06:30 Ondansetron HCl (Zofran Inj) 4 mg Q6H PRN IV NAUSEA/VOMITING; Start 11/08/18 at 06:30 Nitroglycerin (Nitroglycerin (Sl Tab) 0.4 Mg) 1 tab Q5M PRN SL .CHEST PAIN; Start 11/08/18 at 06:30 Acetaminophen (Tylenol Tab) 650 mg Q6H PRN PO .PAIN 1-3 OR TEMP; Start 11/08/18 at 06:30 Morphine Sulfate (morphine) 2 mg Q4H PRN IV .PAIN 7-10; Start 11/08/18 at 06:30 Docusate Sodium (Colace) 100 mg Q12H PRN PO .CONSTIPATION; Start 11/08/18 at 06:30 Bisacodyl (Dulcolax) 5 mg DAILY PRN PO .CONSTIPATION; Start 11/08/18 at 06:30 Amlodipine Besylate (Norvasc) 2.5 mg DAILY PO Last administered on 11/09/18at 08:08; Admin Dose 2.5 MG; Start 11/08/18 at 09:00 Atorvastatin Calcium (Lipitor) 10 mg HS PO ; Start 11/09/18 at 21:00 López Llanos DO November 09, 2018 11:48
[2018-11-09] MEDS: ALPRAZOLAM 0.5 MG TAB PO PRN (11:50)
--- NOTE | 2018-11-09 12:23 | PDOCDIS ---
Discharge Instructions CONDITION [id number] Patient Condition: [id number] Stable HOME CARE INSTRUCTIONS: [id number] Diet Instructions: [id number] Low Fat /Cholesterol FOLLOW UP/APPOINTMENTS Follow-up Plan Follow-up with primary care physician in 1 week. You are also referred to [facility] clinic. Follow-up with them after discharge. Limit caffeine intake. Abstain from tobacco products SHAGGY CARVER NP November 09, 2018 12:23
[2018-11-09] MEDS ORDERED: METO25TA4 PO (12:24)
[2018-11-09] MEDS ORDERED: AMLO2.5T78 PO (12:24)
[2018-11-09] MEDS ORDERED: ATOR10TA65 PO (12:24)
--- NOTE | 2018-11-09 12:29 | DS ---
Date/Time of Note Date/Time of Note DATE: 11/09/18 TIME: 12:26 Discharge Summary Admission/Discharge Info Admit Date/Time November 08, 2018 at 06:01 Discharge Date/Time Discharge Diagnosis Chest pain, likely secondary to underlying anxiety disorders blood pressure. A CS ruled out. hypertension anxiety disorders tobacco abuse, Patient Condition: Stable Consults ,cardiology Procedures 11/08/2018. 2D echocardiogram Conclusions: Overall, normal left ventricular systolic function. Not all segments visualized. Normal left ventricular cavity size. Mild concentric left ventricular hypertrophy. Ejection fraction is visually estimated at 60 %. Tissue Doppler/Mitral Doppler indices are consistent with impaired relaxation (Stage I diastolic dysfunction). Normal right ventricular size. Normal right ventricular systolic function. The left atrium is normal in size. The right atrium is normal in size. No significant valvular stenosis or regurgitation seen. Normal pericardium with no significant pericardial effusion. Electronically Signed By: López Llanos 2018-11-08 22:41:26 PDT Hospital Course 58-year-old obese female with a history of hypertension, anxiety disorders, tobacco abuse, admitted with substernal chest pain... Found to have poorly controlled blood pressure. Patient was ruled out for acute coronary syndrome with serial cardiac biomarkers and EKGs. Patient was being followed by scada technician. Her symptoms are more likely secondary to anxiety disorders and uncontrolled blood pressure. Patient was counseled on reducing her caffeine intake as well as cessation of tobacco products. She was also seen by her psychiatrist nurse practitioner. Patient was referred to [facility] clinic for follow-up. For blood pressure management, she was also started on amlodipine. Metoprolol dosage was decreased secondary to bradycardia. At this time, patient with no further chest pain. She is stable for outpatient follow-up. Approximately 60 m spent on coordinating the discharge on this patient. Home Meds Active Scripts Atorvastatin (Atorvastatin) 10 Mg Tablet, 10 MG PO HS, #30 TAB Prov:CARVER,SHAGGY V. MONOGRAM MAKER 11/09/18 Amlodipine Besylate* (Amlodipine Besylate*) 2.5 Mg Tablet, 2.5 MG PO DAILY, #30 TAB Prov:CARVER,SHAGGY V. MONOGRAM MAKER 11/09/18 Metoprolol Tartrate* (Lopressor*) 25 Mg Tablet, 25 MG PO BID, #60 TAB Prov:CARVER,SHAGGY V. MONOGRAM MAKER 11/09/18 Reported Medications Alprazolam* (Xanax*) 0.5 Mg Tab, 0.5 MG PO BID PRN for ANXIETY, TAB 09/26/18 Sertraline Hcl* (Zoloft*) 50 Mg Tablet, 50 MG PO QAM, #30 TAB 09/26/18 Discontinued Reported Medications Metoprolol Tartrate* (Lopressor*) 50 Mg Tab, 50 MG PO BID, #60 TAB 09/26/18 Follow-up Plan Follow-up with primary care physician in 1 week. You are also referred to [facility] clinic. Follow-up with them after discharge. Limit caffeine intake. Abstain from tobacco products Primary Care Provider Not On Staff Doctor Pending Labs Laboratory Tests Test 11/08/18 18:03 11/09/18 06:25 Creatine Kinase 49 IU/L (23-200) Creatine Kinase Index 0.6 Creatinine Kinase MB 0.27 ng/ml (0.0-2.4) (Mass) Troponin I < 0.012 ng/ml (0.000-0.120) White Blood Count 8.0 10^3/ul (4.8-10.8) Red Blood Count 4.90 10^6/ul (4.20-5.40) Hemoglobin 14.5 g/dl (12.0-16.0) Hematocrit 44.3 % (37.0-47.0) Mean Corpuscular Volume 90.4 fl (82.0-101.0) Mean Corpuscular 29.6 pg (29.0-33.0) Hemoglobin Mean Corpuscular 32.7 g/dl (32.0-37.0) Hemoglobin Concent Red Cell Distribution 13.2 % (11.5-14.5) Width Platelet Count 188 10^3/UL (140-415) Mean Platelet Volume 10.6 fl (7.4-10.4) Immature Granulocytes % 0.300 % (0.001-0.429) Neutrophils % 39.8 % (39.0-77.0) Lymphocytes % 47.4 % (15.0-51.0) Monocytes % 8.7 % (0.0-11.0) Eosinophils % 3.0 % (0.0-7.0) Basophils % 0.8 % (0.0-2.0) Nucleated Red Blood Cells 0.0 /100WBC (0.0-0.0) % Immature Granulocytes # 0.020 10^3/ul (0.0-0.031) Neutrophils # 3.2 10^3/ul (1.6-7.5) Lymphocytes # 3.8 10^3/ul (0.8-2.9) Monocytes # 0.7 10^3/ul (0.3-0.9) Eosinophils # 0.2 10^3/ul (0.0-0.5) Basophils # 0.1 10^3/ul (0.0-0.1) Nucleated Red Blood Cells 0.0 10^3/ul (0.0-0.0) # Sodium Level 145 mmol/L (135-144) Potassium Level 4.2 mmol/L (3.5-5.1) Chloride Level 106 mmol/L (97-110) Carbon Dioxide Level 31 mmol/L (21-31) Anion Gap 8 (5-13) Blood Urea Nitrogen 11 mg/dl (7-20) Creatinine 0.59 mg/dl (0.44-1.00) Est Glomerular Filtrat > 60 mL/min (>60) Rate mL/min Glucose Level 105 mg/dl (70-220) Calcium Level 10.1 mg/dl (8.4-10.2) Total Bilirubin 0.6 mg/dl (0.2-1.3) Direct Bilirubin 0.00 mg/dl (0.00-0.20) Indirect Bilirubin 0.6 mg/dl (0-1.1) Aspartate Amino 49 IU/L (15-46) Transf (AST/SGOT) Alanine 70 IU/L (13-69) Aminotransferase (ALT/SGPT ) Alkaline Phosphatase 96 IU/L (42-121) Total Protein 8.0 g/dl (6.1-8.1) Albumin 4.2 g/dl (3.3-4.9) Globulin 3.80 g/dl (1.3-3.2) Albumin/Globulin Ratio 1.10 SHAGGY CARVER NP November 09, 2018 12:29
[2018-11-09] MEDS ORDERED: ATORVASTATIN 10 MG TAB PO SCH (21:00)
== END 2018-11-09 13:45 | disposition home or self-care (01) ==
LOC: E/R 04:05 → TEL 06:01 → CANRESERV 17:06
PROVIDERS: ADMIT Family Medicine; ATTEND Family Medicine
DX: R07.9 Chest pain, unspecified (principal); I16.0 Hypertensive urgency; I10 Essential (primary) hypertension; F41.9 Anxiety disorder, unspecified; Z72.0 Tobacco use; E66.9 Obesity, unspecified; Z68.41 Body mass index [BMI] 40.0-44.9, adult; G47.00 Insomnia, unspecified
CPT/HCPCS: 36415; 71045; 80048; 80053; 80061; 82550; 82553; 83036; 83735; 84443; 84484; 85025; 93005; 93306; Z7500; Z7502; Z7610; G0378

== ENCOUNTER 2018-11-19 05:16 | Emergency (ER) | payer OTHER ==
[~2018-11-19] VITALS: Wt 119.3 kg
[~2018-11-19 05:16] MED LIST changes: +AMLO2.5T78 PO; +ATOR10TA65 PO; -METO-429 PO; +METO25TA4 PO
--- NOTE | 2018-11-19 06:50 | ERD ---
ER Documentation Chief Complaint Chief Complaint C/O ANXIETY, HTN HPI 58-year-old female with a history of hypertension, hyperlipidemia and anxiety presents to the ED via [facility] complaining of high blood pressure and not feeling well. Patient reports he cannot sleep last night at 1 AM did not feel well with body aches and mild, generalized headache, described as a rushing sensation in her head. Checked her blood pressure was greater than 190 systolic and paramedics were called. Denies chest pain, palpitations, shortness of breath, abdominal pain, nausea vomiting. Feels significantly better now. Admits to anxiety but denies depression or thoughts of self-harm. No URI symptoms or cough. No fevers or chills. ROS All systems reviewed and are negative except as per history of present illness. Medications Home Meds Active Scripts Atorvastatin (Atorvastatin) 10 Mg Tablet, 10 MG PO HS, #30 TAB Prov:CARVER,SHAGGY V. MARINE SERVICES TECHNICIAN 11/09/18 Amlodipine Besylate* (Amlodipine Besylate*) 2.5 Mg Tablet, 2.5 MG PO DAILY, #30 TAB Prov:CARVERSONIDOA V. MARINE SERVICES TECHNICIAN 11/09/18 Metoprolol Tartrate* (Lopressor*) 25 Mg Tablet, 25 MG PO BID, #60 TAB Prov:CARVER,SHAGGY V. MARINE SERVICES TECHNICIAN 11/09/18 Reported Medications Alprazolam* (Xanax*) 0.5 Mg Tab, 0.5 MG PO BID PRN for ANXIETY, TAB 09/26/18 Sertraline Hcl* (Zoloft*) 50 Mg Tablet, 50 MG PO QAM, #30 TAB 09/26/18 Allergies Allergies: Coded Allergies: No Known Allergy (Unverified , 11/08/18) PMhx/Soc Reviewed in chart. As per HPI. History of Surgery: Yes () Anesthesia Reaction: No Hx Neurological Disorder: No Hx Respiratory Disorders: No Hx Cardiac Disorders: No (HTN, high cholesterol) Hx Psychiatric Problems: Yes (Anxiety, insomnia) Hx Miscellaneous Medical Probl: No Hx Alcohol Use: No Hx Substance Use: No Hx Tobacco Use: Yes FmHx No sudden cardiac or subarachnoid hemorrhage Physical Exam Vitals Vital Signs Date Temp Pulse Resp B/P (MAP) Pulse Ox O2 O2 Flow FiO2 Time Delivery Rate 11/19/18 65 17 140/70 100 Room Air 06:57 (93) 11/19/18 150/78 06:10 (102) 11/19/18 98.1 75 18 165/72 98 05:19 (103) Physical Exam Const: No acute distress Head: Atraumatic Eyes: Normal Conjunctiva ENT: Normal External Ears, Nose and Mouth. Neck: Full range of motion. No JVD. Nontender. Resp: Clear to auscultation bilaterally Cardio: Regular rate and rhythm, no murmurs Abd: Soft, non tender, obese, non distended. Normal bowel sounds Skin: No petechiae or rashes Back: No midline or flank tenderness Ext: No cyanosis, or edema Neur: Awake and alert. Normal speech. No facial droop. Cranial 2 through 12 are grossly intact. Normal gait. No focal deficit. Psych: Anxious but not depressed Procedures/MDM DOCUMENTS REVIEWED: ED nurse, prior ED, prior records including recent admission for chest pain, ruled out for ACS. REEXAMINATION/REEVALUATION: Time: 07:14. Feels better. Asymptomatic. BP 140/71. MEDICAL DECISION MAKIN-year-old female with a history of hypertension, hyperlipidemia and anxiety presents to the ED complaining of high blood pressure and not feeling well. Blood pressure and symptoms already have improved. Patient with poorly controlled hypertension likely exacerbated by anxiety. Patient appears stable without evidence of hypertensive emergency or urgency. No indication for labs, EKG or imaging at this time. Patient and family counseled extensively regarding need to pursue adjustment of her medications with her primary care physician with the next 1 to 2 days. Refer to the medication reconciliation form for the current list of hypertensive medications. Stable for discharge with precautionary instructions and outpatient follow-up as counseled. Smoking Cessation Therapy: Pt. was lectured for greater than 3 minutes on the health risks of continued smoking and the benefits of cessation. Counseled patient and family diagnosis and need for followup. Understands to re turn to ED if symptoms recur, worsen or any other concerns. Departure Diagnosis: Primary Impression: Anxiety Additional Impression: Accelerated hypertension Condition: Stable (Improved) ERLIN BARRETT MD November 19, 2018 06:49
[2018-11-19 06:57] VITALS: BP 140/70; PULSE 65; RESP 17
== END 2018-11-19 08:57 | disposition home or self-care (01) ==
LOC: E/R 05:16
DX: F41.9 Anxiety disorder, unspecified (principal); I10 Essential (primary) hypertension; Z87.891 Personal history of nicotine dependence
CPT/HCPCS: 99282